=== PATIENT | male | born 1990 | race African-American/Black ===

== ENCOUNTER → 2023-01-05 | Outpatient (CLI) | payer OTHER ==
[2023-01-05 12:10] LABS: ALBUMIN 3.6 g/dL (3.4-5.0); BILIRUBIN,DIRECT 0.1 mg/dL (0.00-0.20); BILIRUBIN,TOTAL 0.3 mg/dL (0.1-1.0); TOTAL PROTEIN, SERUM 7.4 g/dL (6.4-8.2)
[2023-01-06 04:06] LABS: HERPES SIMPLEX VIRUS-2 AB,IGG <0.91 index (0.00-0.90)
== END | disposition home or self-care (01) ==
LOC: MSR 11:26
PROVIDERS: ATTEND Chiropractor
DX: S82.51XA Displaced fracture of medial malleolus of right tibia, initial encounter for closed fracture (principal); R07.9 Chest pain, unspecified; B00.9 Herpesviral infection, unspecified; K76.9 Liver disease, unspecified; M19.071 Primary osteoarthritis, right ankle and foot; M77.51 Other enthesopathy of right foot and ankle; X58.XXXA Exposure to other specified factors, initial encounter; Y93.89 Activity, other specified; Y92.89 Other specified places as the place of occurrence of the external cause; Y99.8 Other external cause status
CPT/HCPCS: 71046; 80076; 86695; 86696; 36415-L1; 36415-TC